=== PATIENT | female | born 1995 | race Caucasian/White ===

== ENCOUNTER → 2025-01-05 | Outpatient (CLI) | payer BC, SELFPAY ==
[2025-01-05 19:43] LABS: HCG,Qualitative Serum Negative
== END | disposition home or self-care (01) ==
PROVIDERS: PCP Family Medicine; Referring Provider Family Medicine; Visit Provider Family Medicine
DX: N92.1 Excessive and frequent menstruation with irregular cycle (principal)
CPT/HCPCS: 36415; 84703

== ENCOUNTER 2025-05-27 20:44 | Emergency (ER) | payer BC, SELFPAY ==
[2025-05-27 20:46] VITALS: BMI 21.7
[2025-05-27 21:13] VITALS: BP 101/66; PULSE 95; RESP 18; TEMP 36.8; O2SAT 96
--- NOTE | 2025-05-27 21:23 | XR_ITS ---
Examination: Abdomen sonogram, Limited Date and time of exam: May 27, 2025 2132 hours INDICATIONS: Right upper abdominal pain beginning 5 days ago Technique: Real-time lucas scale transabdominal sonographic images of the upper abdomen obtained. Findings: Minimal gallbladder sludge No gallstones Normal gallbladder wall Normal common bile duct 0.1 cm Pancreatic head 2.4 cm Liver 16.8 cm no liver lesions Normal hepatopedal portal venous flow Patent IVC IMPRESSION: Minimal gallbladder sludge Negative for cholelithiasis, negative for cholecystitis
--- NOTE | 2025-05-27 21:23 | PD.EDRME ---
Rapid Medical Screening Exam RME Arrival date/time: 05/27/25 20:44 Chief Complaint: General Adult/Misc Complain Time Seen by Provider: 05/27/25 20:54 Vital signs: Vital Signs Temperature 98.3 F 05/27/25 21:13 Pulse Rate 95 05/27/25 21:13 Respiratory Rate 18 05/27/25 21:13 Blood Pressure 101/66 05/27/25 21:13 Pulse Oximetry (%) 96 05/27/25 21:13 Oxygen Delivery Method Room Air 05/27/25 21:13 RME Narrative: Fatigue, fullness, RUQ pain x2-3 days. Patient reports yellowing of eyes today. Denies etoh use.
[2025-05-27 22:02] LABS: Basophils # (Auto) 0.1 Thou/mm3 (0.0-0.2); Basophils % (Auto) 1 % (0-2.5); Eosinophils # (Auto) 0.1 Thou/mm3 (0.0-0.5); Eosinophils % (Auto) 2 % (0-10); Hematocrit 37.8 % (36.0-46.0); Hemoglobin 13.9 g/dL (12.0-16.0); Immature Granulocytes % (Auto) 0 % (0-0); Immature Granulocytes Auto 0.01 Thou/mm3 (0.00-0.00); Lymphocytes # (Auto) 1.9 Thou/mm3 (1.0-4.8); Lymphocytes % (Auto) 28 % (10-50); Mean Corpuscular HGB Conc 36.8 g/dl (31.0-37.0); Mean Corpuscular Volume 82 fL (80-100); Monocytes # (Auto) 0.7 Thou/mm3 (0.0-0.8); Monocytes % (Auto) 11 % (0-12); Neutrophils # (Auto) 3.8 Thou/mm3 (1.8-7.7); Neutrophils % (Auto) 58 % (37-80); Nucleated Red Blood Cell % 0 /100 WBC (0); Platelet Count 191 Thou/mm3 (140-440); RDW Standard Deviation 33.7 fL (36.4-46.3); Red Blood Count 4.63 Miln/mm3 (4.00-5.20); White Blood Count 6.6 Thou/mm3 (3.6-11.0)
[2025-05-27 22:14] LABS: Alanine Aminotransferase < 7 U/L (10-49); Albumin, Serum 4.5 gm/dL (3.5-5.0); Albumin/Globulin Ratio 1.9 (1.2-2.2); Alkaline Phosphatase 44 U/L (46-116); Anion Gap 6 (7-16); Aspartate Amino Transferase < 8 U/L (0-34); BUN/Creatinine Ratio 18 Ratio (12-20); Bilirubin,Total 3.5 mg/dL (0.3-1.2); Blood Urea Nitrogen 16 mg/dL (9-23); Calcium 9.5 mg/dL (8.3-10.6); Calcium (Corrected) 9.5 mg/dL (8.5-10.1); Carbon Dioxide 25.8 mMol/L (20.0-31.0); Chloride 104 mMol/L (98-107); Creatinine (Component) 0.9 mg/dL (0.6-1.3); Estimated Creatinine Clearance 86.3 mL/min (>60); Globulin 2.4 gm/dL (2.3-3.5); Glucose 83 mg/dL (74-106); Lipase 35 U/L (12-53); Osmolality,Calculated 272 (275-295); Potassium 3.3 mMol/L (3.4-5.1); Sodium 136 mMol/L (136-145); Total Protein 6.9 gm/dL (5.7-8.2); eGFR > 60 See Note
[2025-05-27 22:17] LABS: Collection Type, Urine Clean Catch
[2025-05-27 22:25] LABS: HCG Qualitative,Urine Negative
[2025-05-27 22:33] LABS: Bilirubin,Urine Negative (Negative); Blood,Urine Trace (Negative); Clarity,Urine Turbid (Clear/Hazy); Color,Urine Yellow (Lt Yel-Yel); Glucose, Urine Negative (Negative); Ketones,Urine 1+ (Negative); Leukocyte Esterase,Urine Positive (Negative); Nitrite,Urine Negative (Negative); Protein,Urine 1+ (Neg - Trace); RBC,Urine 10 /hpf (0-3); Specific Gravity,Urine 1.036 (1.001-1.035); Squamous Epithelial Cell,Urine 13 /hpf (0-5); WBC,Urine 50 /hpf (0-5)
[2025-05-27 23:05] LABS: Bilirubin,Direct 0.3 mg/dL (0.0-0.3)
--- NOTE | 2025-05-28 02:50 | EDNOTE_ITS ---
ED Abdominal Pain RME/HPI General Chief Complaint: General Adult/Misc Complain Stated complaint: NOT EATING, WEAK, LOSING WEIGHT, ABD PAIN Time seen by provider: 05/27/25 20:54 Arrival date/time: 05/27/25 20:44 RME / HPI RME / HPI narrative: Fatigue, fullness, RUQ pain x2-3 days. Patient reports yellowing of eyes today. Denies etoh use. DR RUBIO MAIN ED EVALUATION: 30 y/o female presents to ED c/o slowly progressing RUQ abdominal pain, weight loss, lack of appetite, lethargy, lightheadedness, and hypotension x 1.5 weeks. The last 4 days have been the worst and has also noticed yellowing of her eyes today. she describes the abdominal pain as a feeling of fullness and discomfort. Her blood pressure has been as low as 90/61. Patient has not had a bowel movement in 3 days, but reports normally going every other day and having normal soft stools. Patient denies feeling of constipation. She was seen 1 year ago and diagnosed with non-specific colitis, but declined the endoscopy and colonoscopy due to symptoms resolving. Patient was given Dicyclomine which she would take when she had abdominal pain and would resolve the symptoms. She has also changed her diet and avoids spicy food. Patient denies fever, vomiting, diarrhea or any other associated symptoms or aggravating factors. No modifying factors, no radiation, no migration. No severe pain reported overall. Related Data Home Medications ?Medication ?Instructions ?Recorded ?Confirmed albuterol sulfate 90 mcg/actuation 1 puff inhalation 6 TIMES DAILY 03/17/23 03/17/23 aerosol inhaler [id number] 1 mg 1 tab PO 1XD 03/17/23 03/17/23 tablet Previous Rx's ?Medication ?Instructions ?Recorded dicyclomine 20 mg tablet 20 mg PO TID PRN pain #30 ta bs 07/12/24 ibuprofen 800 mg tablet 800 mg PO TID PRN pain #30 t abs 07/12/24 Allergies Allergy/AdvReac Type Severity Reaction Status Date / Time No Known Allergies Allergy Verified 05/27/25 20:47 Review of Systems Review of Systems Systems Reviewed: All systems reviewed, normal except as documented ED Exam Narrative Physical exam: GENERAL APPEARANCE: alert and oriented x 4, well-developed, well-nourished, no acute distress VITALS: All vitals were reviewed and the pulse ox is 96% on room air, which is normal according to my interpretation. HEENT: Normocephalic, atraumatic; pupils equal, round, reactive to light; EOMI; mild scleral icterus; mucous membranes pink, moist; oropharynx clear NECK: Supple LUNGS: CTABL; no wheezes, no rales, no rhonchi HEART: Regular rate, regular rhythm; normal S1, S2; no murmurs ABDOMEN: non distended; normal BS; soft, mildly diffuse tenderness, no guarding, no rebound; no masses, no organomegaly, no hernia BACK: no CVA tenderness EXTREMITIES: atraumatic; no edema NEUROLOGIC: awake; alert and oriented x4; cranial nerves II-XII grossly intact; no focal sensory or motor deficits PSYCHIATRIC: appropriate mood and affect SKIN: warm, dry, normal color; no rashes Course Quality Measures none Orders Category Date Time Status US gall bladder Stat Exams 05/27/25 21:23 Completed Bilirubin,Direct Stat Lab 05/27/25 21:50 Completed CBC Stat Lab 05/27/25 21:50 Completed CMP [Comprehensive Metabolic Panel] Stat Lab 05/27/25 21:50 Completed HCG Qualitative,Urine Stat Lab 05/27/25 22:07 Completed Lipase Stat Lab 05/27/25 21:50 Completed UA [Urinalysis] Stat Lab 05/27/25 22:07 Completed Vital Signs Vital signs: Vital Signs Temperature 98.3 F 05/27/25 21:13 Pulse Rate 95 05/27/25 21:13 Respiratory Rate 18 05/27/25 21:13 Blood Pressure 101/66 05/27/25 21:13 Pulse Oximetry (%) 96 05/27/25 21:13 Oxygen Delivery Method Room Air 05/27/25 21:13 Abdominal Pain MDM MDM Narrative MDM Narrative:: Scribe Attestation: I, Genevieve Armenta, am scribing for and in the presence of Dr. Rubio. Provider Notation: Although this document has been carefully reviewed, there may still be some phonetic and other typographical errors.? These errors are purely grammatical due to imperfections in the software program and should not be construed in any way to? compromise the substance of the patient's medical care during this visit. Patient data External records reviewed:: [facility] previous records (Reviewed prior ED records from 07/12/24. Patient was seen for Colitis.) Clinical information provided by:: patient Social determinants that could affect healthcare access:: none Patient has the following chronic illnesses:: None reported How is presenting disease/condition affected by chronic disease/condition?: no chronic disease Evaluation data The following diagnostics were reviewed and interpreted by me:: lab results and radiology exam(s) Lab and/or radiology exams considered but not ordered:: None Interpretation Summary: RADIOLOGY Gall Bladder US: Patient: WILLI MOCK. Record#: [id number] Birthdate: 1995 Age/Sex: 30 / F Location: [facility] Attending Dr: Ordering Physician: Josr Fraser PA-C Date of Service: 05/27/25 Procedure(s): US gall bladder Accession Number(s): [id number] cc: Rajan Ballesteros MD; NO PRIMARY/FAMILY,PHYSICIAN; Josr Fraser PA-C~ Examination: Abdomen sonogram, Limited Date and time of exam: May 27, 2025 2132 hours INDICATIONS: Right upper abdominal pain beginning 5 days ago Technique: Real-time lucas scale transabdominal sonographic images of the upper abdomen obtained. Findings: Minimal gallbladder sludge No gallstones Normal gallbladder wall Normal common bile duct 0.1 cm Pancreatic head 2.4 cm Liver 16.8 cm no liver lesions Normal hepatopedal portal venous flow Patent IVC IMPRESSION: Minimal gallbladder sludge Negative for cholelithiasis, negative for cholecystitis Dictated By: Rajan Ballesteros MD Signed By: <Electronically signed by Rajan Ballesteros MD in OV> 05/27/251 Medications / Prescriptions Medications or Prescriptions considered but not ordered:: None Medication administrations:: See above Consultations Consultation(s) initiated? (list below): No Diagnosis Differential diagnosis abdominal pain: abdominal pain, acute appendicitis, calculus of kidney, constipation, diverticulitis, endometriosis, gastroenteritis, pancreatitis, small bowel obstruction and other (Cholecystitis, Cholelithiasis) Most likely diagnosis given after review of the tests above:: Hyperbilirubinemia, Decreased appetite, Unintentional weight loss Admission Indicated Admission indicated?: not indicated Explain why admission is indicated or not indicated:: Patient does not meet admission criteria. Admission Request Was there a request for admission?: No Disposition Plan Disposition Plan: Discharge Discharge Attestation Discharge Attestation: The patient and all family members were given an opportunity to ask questions a nd understood the discharge instructions. Discharge instructions specifically effects, indications for sooner follow up or return to the emergency department, and the expected course of current diagnosis. Patient condition: Stable Discharge Plan Plan Patient Disposition: HOME (Self Care) Prescriptions/Referrals Prescriptions/Med Rec: No Action 1 mg Tablet 1 tab PO 1XD albuterol sulfate 90 mcg/actuation HFA aerosol inhaler 1 puff INHALATION 6 TIMES DAILY ibuprofen 800 mg tablet 800 mg PO TID PRN (Reason: pain) Qty: 30 0RF dicyclomine 20 mg tablet 20 mg PO TID PRN (Reason: pain) Qty: 30 0RF Referrals: Vladimir Downey MD [Physician] - Hitesh Juarez MD [Primary Care Provider] - In 1 week Problem List Clinical Impression: Hyperbilirubinemia, Decreased appetite, Unintentional weight loss Patient/Caregiver Discharge Instructions Education Materials: Total Bilirubin (Blood) Additional Instructions: Follow up with Dr. Downey, gastroenterology, for further workup. You may need additional tests such as HIDA scan and MRCP. Call office for appointment. Return to the emergency room if symptoms worsen, do not improve, or other concerns. Print Language: Hebrew Stand Alone Forms: Karma Award Info., Patient Portal Info Letter
[2025-05-28 03:00] VITALS: RESP 16
== END 2025-05-28 03:01 | disposition home or self-care (01) ==
PROVIDERS: Physician Assistant; Emergency Provider Emergency Medicine; PCP Family Medicine
DX: R17 Unspecified jaundice (principal); R63.4 Abnormal weight loss
CPT/HCPCS: 36415; 76705; 80053; 80074; 81001; 81025; 82248; 83690; 84439; 84443; 85025; 99284